=== PATIENT | female | born 1980 | race Caucasian/White ===

== ENCOUNTER → 2023-07-08 09:08 | Outpatient (CLI) | payer BC, SELFPAY ==
--- NOTE | 2023-07-08 | CA_ITS ---
FINAL REPORT TECHNIQUE: Color Doppler, duplex Doppler and meraz scale sonography of the bilateral neck vasculature was performed. Velocities were measured in the carotid arteries. Stenosis evaluation based on velocity criteria. CLINICAL HISTORY: neck pain, HTN, Cushings COMPARISON: None FINDINGS: The peak systolic velocity of the right common carotid artery is 89 cm/sec and internal carotid artery 83 cm/sec. The diastolic velocity in the internal carotid artery is 28 cm/sec. The ICA/CCA ratio is 0.93. Visually, no significant plaque is seen. These findings are consistent with less than 50% stenosis. The external carotid artery is patent. The right vertebral artery is patent with antegrade flow. The peak systolic velocity of the left common carotid artery is 92 cm/sec and internal carotid artery 103 cm/sec. The diastolic velocity in the internal carotid artery is 33 cm/sec. The ICA/CCA ratio is 1.2. Visually, no significant plaque is identified. These findings are consistent with less than 50% stenosis. The external carotid artery is patent. The left vertebral artery is patent with antegrade flow. IMPRESSION: No evidence of significant carotid stenosis. Bilateral patent vertebral arteries. If indicated, CTA or MRA could further evaluate. Reviewed, Interpreted and Dictated by Richy Alberts III, MD Transcribed by Ritu Dean Authenticated and [facility]
== END ==
PROVIDERS: PCP Family Medicine; Visit Provider Family Medicine
DX: M54.2 Cervicalgia (principal); R07.9 Chest pain, unspecified
CPT/HCPCS: 93880

== ENCOUNTER 2023-10-21 09:37 | Outpatient (CLI) | payer OTHER, SELFPAY ==
[2023-10-21 10:17] LABS: Basophils # 0.1 K/mm3 (0-0.2); Basophils % 0.9 % (0.1-2.0); Eosinophils # 0.2 K/mm3 (0.0-0.4); Eosinophils % 3.6 % (0.1-12.0); Hematocrit 36.9 % (37.0-47.0); Lymphocytes # 2.2 K/mm3 (0.7-4.5); Lymphocytes % 35.2 % (10-50); Mean Corpuscular HGB Conc 32.6 g/dL (31.8-35.4); Mean Corpuscular Hemoglobin 28.9 pg (27.0-31.2); Mean Corpuscular Volume 88.7 fl (81-99); Monocytes # 0.4 K/mm3 (0.1-1.0); Monocytes % 5.5 % (1.7-9.3); Neutrophils # 3.5 K/mm3 (1.8-7.8); Neutrophils % 54.7 % (37.0-80.0); Platelet Count 200 K/mm3 (142-424); Red Blood Count 4.16 M/mm3 (4.20-5.40); Red Cell Distribution Width 15.5 % (11.5-17.5); White Blood Count 6.3 K/mm3 (4.8-10.8)
[2023-10-21 10:34] LABS: Hemoglobin A1C 7.1 % (4.0-6.0)
[2023-10-21 10:36] LABS: Chloride 102 mmol/L (98-107); Potassium 4.2 mmoL/L (3.5-5.1); Sodium 135 mmol/L (136-145)
[2023-10-21 10:39] LABS: Alanine Aminotransferase 69 U/L (12-78); Albumin Level 3.6 g/dl (3.5-5.0); Albumin/Globulin Ratio 1.3 (1.1-1.8); Alkaline Phosphatase 125 U/L (38-126); Anion Gap 9.2 mEq/L (5-15); Aspartate Amino Transferase 58 U/L (14-36); Bilirubin,Total 0.3 mg/dl (0.2-1.3); Blood Urea Nitrogen 16 mg/dl (7-17); Carbon Dioxide 28 mmol/L (22.0-30.0); Cholesterol 258 mg/dl (140-200); Estimated Glomerular Filt Rate 109 ml/min (>60); GFR (African American) 131 ML/MIN (>60); Globulin 2.8 g/dL (1.3-3.2); Total Protein,Serum 6.4 g/dl (6.3-8.2); Triglycerides 278 mg/dl (30-150); VLDL Cholesterol 56 mg/dL (0-40)
[2023-10-21 10:40] LABS: Calcium 8.7 mg/dl (8.4-10.2); Chol/HDL Ratio 5.9 (1-3.5); Glucose 165 mg/dl (74-100); HDL Cholesterol 44 mg/dl (40-60)
[2023-10-21 10:47] LABS: C-Reactive Protein 11.7 mg/L (0-4)
[2023-10-21 10:56] LABS: Free T4 (Free Thyroxine) 0.78 ng/dl (0.78-2.19)
[2023-10-21 11:02] LABS: Erythrocyte Sedimentation Rate 21 mm/hr (0-20)
[2023-10-21 11:11] LABS: Thyroid Stimulating Hormone 4.11 uIU/mL (0.465-4.68)
[2023-10-21 11:13] LABS: Gamma Glutamyl Transpeptidase 79 U/L (12-43)
[2023-10-21 11:15] LABS: Ferritin 20.2 ng/ml (6.24-137)
[2023-10-22 07:44] LABS: HBsAg Screen Negative (Negative); HCV Ab Non Reactive (Non Reactive); Hep A Ab, IGM Negative (Negative); Hep B Core Ab, IgM Negative (Negative)
[2023-10-22 08:40] LABS: Triiodothyronine (T3) Free 3.5 pg/mL (2.0-4.4)
[2023-10-22 13:13] LABS: Antinuclear Antibodies, IFA Negative (.)
[2023-10-22 15:38] LABS: EBV Ab VCA, IgM <36.0 U/mL (0.0-35.9)
== END 2023-10-21 23:59 ==
LOC: LAB 09:42
PROVIDERS: PCP Family Medicine; Visit Provider Family Medicine
DX: E11.9 Type 2 diabetes mellitus without complications (principal); E78.5 Hyperlipidemia, unspecified; R53.83 Other fatigue; R74.01 Elevation of levels of liver transaminase levels; Z79.899 Other long term (current) drug therapy
CPT/HCPCS: 36415; 80053; 80061; 80074; 82533; 82728; 82977; 83036; 84439; 84443; 84481; 85025; 85651; 86038; 86140; 86665

== ENCOUNTER 2023-10-31 08:23 | Outpatient (CLI) | payer OTHER, SELFPAY ==
--- NOTE | 2023-10-31 08:27 | US_ITS ---
FINAL REPORT TECHNIQUE: Ultrasound images of the abdomen was obtained. CLINICAL HISTORY: ELEVATED LFT COMPARISON: None FINDINGS: The liver is mildly enlarged and fatty infiltrated. There is no focal mass. The gallbladder is normal. The common duct is normal. The right kidney is normal in echogenicity without hydronephrosis. The left kidney is normal in echogenicity without hydronephrosis. The spleen is normal in size. The aorta is normal caliber. The vena cava is unremarkable. IMPRESSION: Fatty infiltration of the liver with mild hepatic enlargement Reviewed, Interpreted and Dictated by Edward Lewis MD Transcribed by KAVIN Rasheed Authenticated and [facility]
== END 2023-10-31 23:59 ==
LOC: RAD 08:23
PROVIDERS: PCP Family Medicine; Visit Provider Family Medicine
DX: R14.0 Abdominal distension (gaseous) (principal); R94.5 Abnormal results of liver function studies
CPT/HCPCS: 76700

== ENCOUNTER 2024-05-17 08:04 | Outpatient (CLI) | payer OTHER, SELFPAY ==
[2024-05-17 09:05] LABS: Albumin Level 3.8 g/dl (3.5-5.0); Chloride 103 mmol/L (98-107); Potassium 4.3 mmoL/L (3.5-5.1); Sodium 138 mmol/L (136-145)
[2024-05-17 09:08] LABS: Alanine Aminotransferase 62 U/L (12-78); Albumin/Globulin Ratio 1.3 (1.1-1.8); Alkaline Phosphatase 91 U/L (38-126); Anion Gap 8.3 mEq/L (5-15); Aspartate Amino Transferase 45 U/L (14-36); Bilirubin,Total 0.5 mg/dl (0.2-1.3); Blood Urea Nitrogen 15 mg/dl (7-17); Calcium 9.4 mg/dl (8.4-10.2); Carbon Dioxide 31 mmol/L (22.0-30.0); Estimated Glomerular Filt Rate 78 ml/min (>60); GFR (African American) 94 ML/MIN (>60); Globulin 2.9 g/dL (1.3-3.2); Glucose 104 mg/dl (74-100); Total Protein,Serum 6.7 g/dl (6.3-8.2)
[2024-05-17 09:25] LABS: Free T4 (Free Thyroxine) 0.87 ng/dl (0.78-2.19)
[2024-05-17 09:38] LABS: Thyroid Stimulating Hormone 3.17 uIU/mL (0.465-4.68)
[2024-05-17 10:02] LABS: Hemoglobin A1C 6.3 % (4.0-6.0)
== END 2024-05-17 23:59 | disposition home or self-care (01) ==
LOC: LAB 08:06
PROVIDERS: PCP Family Medicine; Visit Provider Internal Medicine
DX: E11.42 Type 2 diabetes mellitus with diabetic polyneuropathy (principal); E27.40 Unspecified adrenocortical insufficiency
CPT/HCPCS: 36415; 80053; 82533; 83036; 84439; 84443

== ENCOUNTER 2024-06-07 14:58 | Outpatient (CLI) | payer OTHER, SELFPAY ==
--- NOTE | 2024-06-07 15:03 | XR_ITS ---
PROCEDURE INFORMATION: Exam: XR Lumbosacral Spine Exam date and time: 06/07/2024 3:21 PM Age: 44 years old Clinical indication: Lumbago; Low back pain; Additional info: Low back pain, bilateral le numbness, tingling TECHNIQUE: Imaging protocol: Radiologic exam of the lumbosacral spine. Views: 2 or 3 views. COMPARISON: No relevant prior studies available. FINDINGS: Bones/joints: Advanced severe degenerative disc disease at L5-S1. Minimal degenerative spurring at the more superior levels. Vertebral body heights intact. Mild dextrocurvature. Soft tissues: Unremarkable. IMPRESSION: Degenerative changes most pronounced at L5-S1.
[2024-06-07 16:52] LABS: Creatine Kinase 92 U/L (30-135)
[2024-06-07 17:55] LABS: Vitamin B12 844 pg/mL (239-931)
[2024-06-07 18:47] LABS: Ferritin 18.3 ng/ml (6.24-137)
[2024-06-08 14:13] LABS: Aldolase 8.3 U/L (3.3-10.3)
== END 2024-06-07 23:59 | disposition home or self-care (01) ==
LOC: LAB 15:00
PROVIDERS: PCP Family Medicine; Visit Provider Specialist
DX: M54.9 Dorsalgia, unspecified (principal); M54.2 Cervicalgia; R20.0 Anesthesia of skin; R20.2 Paresthesia of skin; R53.1 Weakness; M62.40 Contracture of muscle, unspecified site; G51.4 Facial myokymia
CPT/HCPCS: 36415; 72100; 82085; 82550; 82607; 82728; 82746

== ENCOUNTER 2024-06-11 09:39 | Outpatient (CLI) | payer OTHER, SELFPAY ==
--- NOTE | 2024-06-11 09:41 | XR_ITS ---
FINAL REPORT TECHNIQUE: Bone densitometry calculations of the lumbar spine and left hip were obtained. CLINICAL HISTORY: SCREENING COMPARISON: None FINDINGS: Using L1-4, the bone mineral density of the spine is 0.973 g/cm2, corresponding to T-score of -0.7. Using the left hip, the bone mineral density of the femoral neck is 0.740 g/cm2, corresponding to a T-score of -1.0. NOTE: T-score: Standard deviation compared with peak bone mass of young adult mean. *Following the recommendations of the International Society of Bone densitometry, classification of hip BMD is based on the lower of two T-scores; total hip or femoral neck. IMPRESSION: Normal bone mineral density of the lumbar spine and hip. Reviewed, Interpreted and Dictated by Richy Alberts III, MD Transcribed by Ritu Dean Authenticated and [facility]
== END 2024-06-11 23:59 | disposition home or self-care (01) ==
LOC: RAD 09:39
PROVIDERS: PCP Family Medicine; Visit Provider Family Medicine
DX: E27.40 Unspecified adrenocortical insufficiency (principal); Z79.52 Long term (current) use of systemic steroids
CPT/HCPCS: 77080

== ENCOUNTER 2024-07-07 16:03 | Outpatient (CLI) | payer OTHER, SELFPAY ==
[2024-07-07 17:02] LABS: Creatine Kinase 91 U/L (30-135)
[2024-07-07 18:05] LABS: Vitamin B12 816 pg/mL (239-931)
[2024-07-08 16:34] LABS: Aldolase 6.7 U/L (3.3-10.3)
== END 2024-07-07 23:59 | disposition home or self-care (01) ==
LOC: LAB 16:05
PROVIDERS: PCP Family Medicine; Visit Provider Specialist
DX: R20.0 Anesthesia of skin (principal); R20.2 Paresthesia of skin; R53.1 Weakness; Z68.41 Body mass index [BMI] 40.0-44.9, adult; R51.9 Headache, unspecified
CPT/HCPCS: 82085; 82550; 82607; 82746

== ENCOUNTER 2024-07-09 13:05 | Outpatient (CLI) | payer OTHER, SELFPAY ==
--- NOTE | 2024-07-09 13:05 | MR_ITS ---
FINAL REPORT CLINICAL HISTORY: Low back pain, Bilateral LE numbness, tingling FINDINGS: Multiplanar MR imaging of the lumbar spine was performed without contrast. On the sagittal T2-weighted images, disc degeneration is seen at multiple levels. There is mild retrolisthesis of L3 on L4. The vertebral alignment is normal. No bony mass is identified. There is no evidence of fracture. The conus has an unremarkable appearance. L1-2: There is no significant canal stenosis or neuroforaminal narrowing. L2-3: An annular bulge is present. There is no significant canal stenosis or neuroforaminal narrowing. L3-4: An annular disc bulge with facet arthropathy is present. There is mild right neuroforaminal narrowing. There is no significant canal stenosis. L4-5: An annular disc bulge with facet arthropathy is present. There is mild bilateral neuroforaminal narrowing. There is no significant canal stenosis. L5-S1: There is an annular disc bulge with facet arthropathy and vertebral osteophytes. There is a right foraminal disc protrusion. There is a right paracentral inferiorly extruded disc which contacts the right S1 nerve root. There is moderate right and mild left neuroforaminal narrowing. IMPRESSION: Multilevel degenerative disc disease as above. Right foraminal disc protrusion and right paracentral inferiorly extruded disc at L5-S1. Reviewed, Interpreted and Dictated by Richy Alberts III, MD Transcribed by Sherrie Márquez Authenticated and [facility]
--- NOTE | 2024-07-09 13:05 | MR_ITS ---
FINAL REPORT CLINICAL HISTORY: Myokemia, Invol. muscle contation of face. HEADACHE, DIZZINESS AND FALLING FREQUENTLY FINDINGS: Multiplanar MR imaging of the brain was performed without and with contrast. There is focal right parietal encephalomalacia. There is no evidence of intracranial hemorrhage or mass. No abnormal extra-axial fluid collection is seen. The ventricular size is within normal limits. There is no evidence of shift of the midline structures. The posterior fossa and brainstem have an unremarkable appearance. No area of abnormal restricted diffusion is identified. No abnormal contrast enhancement is seen. Normal major vessel vascular flow voids are noted. IMPRESSION: No acute intracranial abnormality identified. Reviewed, Interpreted and Dictated by Richy Alberts III, MD Transcribed by Sherrie Márquez Authenticated and [facility]
[2024-07-09 13:35] LABS: Blood Urea Nitrogen 19 mg/dl (7-17); Estimated Glomerular Filt Rate 78 ml/min (>60); GFR (African American) 94 ML/MIN (>60)
[2024-07-09] MEDS: GADOTERIDOL INJ 10ML SYRINGE 5 ML IV (14:37)
[2024-07-09] MEDS: SODIUM CHLORIDE 0.9% 10ML SYR (RAD ONLY) 10 ML IV (14:37)
[2024-07-09] MEDS: GADOTERIDOL INJ 20ML SYRINGE 20 ML IV (14:37)
== END 2024-07-09 23:59 | disposition home or self-care (01) ==
LOC: RAD 13:05
PROVIDERS: PCP Family Medicine; Visit Provider Specialist
DX: M54.41 Lumbago with sciatica, right side (principal); M54.2 Cervicalgia; R51.9 Headache, unspecified; R20.0 Anesthesia of skin; R20.2 Paresthesia of skin; R53.1 Weakness; M62.40 Contracture of muscle, unspecified site; G51.4 Facial myokymia
CPT/HCPCS: 36415; 70553; 72148; 82565; 84520; A9576

== ENCOUNTER 2025-05-05 14:57 | Outpatient (CLI) | payer OTHER, SELFPAY ==
[2025-05-05 15:14] LABS: Adenovirus F 40/41, stool Not Detected (NotDetected); Clostridium Difficile A/B, PCR Not Detected (NotDetected); Cyclospora Cayetanesis Not Detected (NotDetected); Plesimonas Shigalloides, PCR Not Detected (NotDetected); Salmonella, PCR Not Detected (NotDetected); Shiga-like toxin E coli Not Detected (NotDetected); Shigella Enterovasive E coli Not Detected (NotDetected); Vibrio, PCR Not Detected (NotDetected); Yersinia Entercolitica, PCR Not Detected (NotDetected)
== END 2025-05-05 23:59 | disposition home or self-care (01) ==
LOC: LAB 14:59
PROVIDERS: PCP Family Medicine; Visit Provider Internal Medicine
DX: R10.9 Unspecified abdominal pain (principal); R19.7 Diarrhea, unspecified; Z86.39 Personal history of other endocrine, nutritional and metabolic disease
CPT/HCPCS: 87177; 87507